=== PATIENT | female | born 1995 | race Caucasian/White ===

== ENCOUNTER 2017-06-19 23:33 | Emergency (ER) | payer OTHER ==
[~2017-06-19] VITALS: Ht 165.1 cm; Wt 77.1 kg
[2017-06-20 00:40] LABS: BASOPHIL % 0.2 % (0-2)
[2017-06-20 00:43] LABS: RED CELL DISTRIBUTION WIDTH 17.1 % (11.5-14.5)
[2017-06-20 00:53] LABS: CALCIUM 8.8 mg/dL (8.5-10.1); CARBON DIOXIDE 22.3 mmol/L (21-32); CHLORIDE SERUM 105 mmol/L (98-107); CREATININE SERUM 0.8 mg/dL (0.6-1.0); GFR1 > 60 mL/min; GLUCOSE SERUM 106 mg/dL (74-106); POTASSIUM SERUM 3.6 mmol/L (3.5-5.1); SODIUM SERUM 139 mmol/L (136-145)
[2017-06-20 00:54] LABS: PLATELET COUNT 507 x10^3mcL (130-400)
[2017-06-20 00:58] LABS: ALKALINE PHOSPHATASE 161 U/L (46-116); ALT/SGPT 31 U/L (14-59); AMYLASE 28 U/L (25-115); AST/SGOT 28 U/L (15-37); BILIRUBIN TOTAL 0.3 mg/dL (0.20-1.00); LIPASE 89 IU/L (73-393)
[2017-06-20 01:00] LABS: ALBUMIN 3.3 g/dL (3.4-5.0)
[2017-06-20 02:04] LABS: AMPHETAMINE QUAL UR NONE DETECTED (NEG <=1000)
[2017-06-20 05:23] VITALS: BP 111/65
== END 2017-06-20 05:00 | disposition home or self-care (01) ==
LOC: ED 23:33
PROVIDERS: Emergency Medicine
DX: R07.9 Chest pain, unspecified (principal); R06.00 Dyspnea, unspecified; E66.9 Obesity, unspecified; E46 Unspecified protein-calorie malnutrition
CPT/HCPCS: 36415; 85378; G0480; J2930; J7613; J7644; Q9967